=== PATIENT | female | born 1990 | race Caucasian/White ===

== ENCOUNTER 2023-12-06 19:27 | Emergency (ER) | payer OTHER, SELFPAY ==
[2023-12-06 19:28] VITALS: BP 117/79; BMI 24.0
--- NOTE | 2023-12-06 20:44 | ED.GENMED ---
History of Present Illness
<TOMAS Beckett - Last Filed: 12/07/23 07:16>
General
Chief Complaint: Headache
Source: patient
Exam Limitations: none
Time Seen by Provider: 12/06/23 20:34
Nursing documentation reviewed up to this point in time: agreed with
Travel History
Have you had any contact with someone who has COVID-19?: No
Do you have any symptoms of coronavirus? Fever > 100 degrees, chills, cough, shortness of breath, sore throat, loss of taste or smell, muscle aches, or headache?: No
History of Present Illness
History of Present Illness:
Patient is a 33-year-old female presents to the ER for evaluation. Patient reports on 6 days ago she woke up due to a left-sided headache. Throughout the day and headache got worse and she also noticed left-sided neck pain and left
shoulder blade pain. The symptoms have since continued however on Monday (2 days ago) she started with episodes where she describes things appearing that they are moving. She was watching TV and the TV look like it was moving. She was speaking to
somebody and they look like they were moving. Since then she has also had intermittent sensations that she feels like she is moving. She has no prior history of vertigo. She is no prior history of headaches. She denies any associated nausea
vomiting light sensitivity. Denies any recent fever chills trauma. Denies any heavy weightlifting. Denies any recent chiropractic manipulation.
Patient has taken generic Tylenol which has not relieved her symptoms. She saw her PCP today at 6:15 PM here to the ER. She reports her headache has worsened since 6 PM.
Review of Systems
<TOMAS Beckett - Last Filed: 12/07/23 07:16>
Review of Systems
Allergies reviewed?: Yes
All Other Systems: ROS reviewed and negative except as documented in HPI and ROS
Constitutional: Reports no symptoms; Denies fever, fatigue or chills
Respiratory: Reports no symptoms
Cardiac: Reports no symptoms
ABD/GI: Reports no symptoms; Denies nausea or vomiting
Musculoskeletal: Reports neck pain ( left-sided headache left shoulder blade)
Skin: Reports no symptoms; Denies rash
Neurological: Reports dizzy and headache
Endocrine: Reports no symptoms
Hematologic/Lymphatic: Reports no symptoms
Psychiatric: Reports no symptoms
Phy Exam
<TOMAS Beckett - Last Filed: 12/07/23 07:16>
General Physical Exam
General Presentation: no apparent distress
General age: appears stated age
General Skin: warm and dry
General Habitus: normal
General Mental: alert
General Hydration: appears well hydrated
Eye Exam
Eye Exam: PERRL and EOMI
Eye Exam General: PERRL: bilateral and EOM intact: bilateral
Pupil Exam: Bilateral: round and reactive
Neurological Exam
Neurological Exam: alert and oriented x3
[place] Coma Scale
Eye Opening: Spontaneous
Verbal Response: Oriented
Motor Response: Obeys Commands
GCS Total Score: 15
Cerebellar
Cerebellar Function: normal finger to nose
Musculoskeletal Exam
Musculoskeletal Exam: full ROM
Skin Exam
Skin Exam: normal color and warm/dry
Psychiatric Exam
Psychiatric Exam: normal mood/affect
<Dave Man DO - Last Filed: 12/06/23 23:00>
[place] Coma Scale
GCS Total Score: 15
Course
<TOMAS Beckett - Last Filed: 12/07/23 07:16>
Orders/Labs/Results
Orders:
Orders
12/06/23 20:42
CT Head & Neck Angio W/wo IV Urgent
Comment:
Reason For Exam: left sided headache/ vertigo no hx of headaches
12/06/23 20:43
IV Insert/Care/Rem.- Treatment PRN
0.9% Sodium Chloride 1000 ml [Nss] 1,000 ml IV BOLUS
Diphenhydramine [Benadryl] 25 mg IV NOW STA
Metoclopramide [Reglan] 10 mg IV NOW STA
12/06/23 21:05
Complete Blood Count/With Diff Urgent
12/06/23 21:27
Comprehensive Metabolic Panel Urgent
HCG, Serum Qualitative Screen Urgent
12/06/23 22:55
Ketorolac [Toradol] 15 mg IV NOW STA
Abnormal Lab Results
12/06/23 12/06/23
21:05 21:27
Absolute Monos (auto) 0.7 H 10^3/uL
(0.1-0.6)
Sodium 132 L mmol/L
(135-145)
Carbon Dioxide 21 L mmol/L
(22-30)
12/06/23 21:05
12/06/23 21:27
Vital Signs
Initial and Last Documented VS:
Initial Vital Signs
Temp Pulse Resp BP Pulse Ox
98.4 F 84 16 117/79 99
12/06/23 19:28 12/06/23 19:28 12/06/23 19:28 12/06/23 19:28 12/06/23 19:28
Last Documented Vital Signs
Temp Pulse Resp BP Pulse Ox
98.4 F 84 16 102/67 98
12/06/23 19:28 12/06/23 19:28 12/06/23 19:28 12/06/23 21:53 12/06/23 21:53
Pediatric Dental Assistant consulted with Physician
Pediatric Dental Assistant consulted with physician?: Yes
Name of Physician Consulted: Donovan
<Dave Man, - Last Filed: 12/06/23 23:00>
Orders/Labs/Results
Orders:
Orders
12/06/23 20:42
CT Head & Neck Angio W/wo IV Urgent
Comment:
Reason For Exam: left sided headache/ vertigo no hx of headaches
12/06/23 20:43
IV Insert/Care/Rem.- Treatment PRN
0.9% Sodium Chloride 1000 ml [Nss] 1,000 ml IV BOLUS
Diphenhydramine [Benadryl] 25 mg IV NOW STA
Metoclopramide [Reglan] 10 mg IV NOW STA
12/06/23 21:05
Complete Blood Count/With Diff Urgent
12/06/23 21:27
Comprehensive Metabolic Panel Urgent
HCG, Serum Qualitative Screen Urgent
12/06/23 22:55
Ketorolac [Toradol] 15 mg IV NOW STA
Abnormal Lab Results
12/06/23 12/06/23
21:05 21:27
Absolute Monos (auto) 0.7 H 10^3/uL
(0.1-0.6)
Sodium 132 L mmol/L
(135-145)
Carbon Dioxide 21 L mmol/L
(22-30)
12/06/23 21:05
12/06/23 21:27
Vital Signs
Initial and Last Documented VS:
Initial Vital Signs
Temp Pulse Resp BP Pulse Ox
98.4 F 84 16 117/79 99
12/06/23 19:28 12/06/23 19:28 12/06/23 19:28 12/06/23 19:28 12/06/23 19:28
Last Documented Vital Signs
Temp Pulse Resp BP Pulse Ox
98.4 F 84 16 102/67 98
12/06/23 19:28 12/06/23 19:28 12/06/23 19:28 12/06/23 21:53 12/06/23 21:53
<TOMAS Beckett - Last Filed: 12/07/23 07:16>
MDM/Problems Addressed
MDM/Problems Addressed:
2051: Case discussed with ED physician .
patient with no prior history of headaches and as documented started with left-sided headache 6 days ago associate with neck pain left shoulder plain and dizzy sensation/vertigo symptoms. She has no history of vertigo or migraine headaches. She
presents awake alert no acute distress with normal neurological exam. Based on symptoms will order CT head and CT head and neck angio. will give fluids and give reglan Benadryl. CAse signed out to DR Man
<TOMAS Beckett - Last Filed: 12/07/23 07:16>
*Critical Care Note
Total Time (30-74mins, 75-104mins- exclusive of procedures): Not Applicable
ED Attending Note
<TOMAS Beckett - Last Filed: 12/07/23 07:16>
-
Portions of this chart may have been created with voice recognition software.� Occasional wrong word or��sound alike� substitutions may have occurred due to the inherent limitations of voice recognition software.
<Dave Man DO - Last Filed: 12/06/23 23:00>
ED Attending Note
Patient seen and examined by attending physician: Yes
I performed the substantive portion of visit, reviewed & personally made and approve the management plan that is documented in note by myself or AMANDA.: Yes
I performed a history and physical exam of patient and discussed management with resident, I reviewed resident's note and agree with documented findings and plan of care.: Yes
ED Attending Note:
I evaluated the patient at bedside. The patient is well-appearing. Since she did have associated vertiginous symptoms associated with new unexplained headache, CTA imaging was obtained. I also reassessed patient at 11 PM. Overall the patient
states that she was able to and feel somewhat improved after Reglan/Benadryl. We also given Toradol. I have also given her the contact information for a local neurologist. She did just come from her primary care doctor's office earlier this
evening.
Discharge Plan
Departure
Patient Disposition: Home (Routine Discharge)
Date of Disposition: 12/06/23
Time of Disposition: 22:58
Patient with high blood pressure during this ER visit?: No
Discharge Problem:
Headache
Instructions: Headache, Adult (DC)
Referrals:
Silverio Cm, DO [Family Provider] -
Maria L Reed, DO [Active] - Follow up in 2-3 days
Activity Restrictions/Additional Instructions:
Please follow-up your primary care doctor. I recommend 3-4 [id number]-nac-vijakld ibuprofen (Motrin) every 8 hours with food for a few days. Return here if worse. A CAT scan of your brain was obtained which was unremarkable including CAT scan
angiography imaging that showed no sign of carotid dissection or other vascular abnormality. Basic blood work was normal. We gave Reglan with Benadryl initially and then Toradol before you left. Toradol is a medicine similar to Motrin. I have
also given the contact information for local neurologist.
Interventions
Interventions:
*Risk Screen - Suicide Last Done: 12/06/23 19:28
*General Assessment Last Done: 12/06/23 20:58
*Neglect/Abuse Screening Last Done: 12/06/23 19:28
ED- Fall Risk Assessment Last Done: 12/06/23 20:58
*ED COVID-19 Vaccine History Last Done: 12/06/23 19:28
*Nursing Disposition Last Done: 12/06/23 23:07
ED- Neurological Assessment Last Done: 12/06/23 20:58
Discharge Date and Time
Discharge Date/Time: 12/06/23 23:08
Print Language: INDONESIAN
[2023-12-06 20:57] VITALS: BP 103/72
[2023-12-06] MEDS: NSS 1000 IV (21:10)
[2023-12-06] MEDS: REGLAN 10 MG IV (21:11)
[2023-12-06 21:13] LABS: % Basophils 0.5 % (0-2); % Eosinophils 3.8 % (0-6); % Immature Granulocytes 0.1 % (0-0.5); % Monocytes 8.9 % (1.7-9.3); % Neutrophils 53.7 % (42.2-75.2); Absolute Eosinophils 0.3 10^3/uL (0-0.7); Absolute Lymphocytes 2.4 10^3/uL (1.2-3.4); Absolute Monocytes 0.7 10^3/uL (0.1-0.6); Absolute Neutrophils 3.9 10^3/uL (1.4-6.5); Hematocrit 37.1 % (37.0-47.0); Hemoglobin 13.1 g/dL (12.0-16.0); Mean Corp Hgb Conc. 35.3 g/dL (33.0-37.0); Mean Corpuscular Hgb 30.6 pg (27.0-31.0); Mean Corpuscular Volume 86.7 fL (81.0-99.0); Mean Platelet Volume 9.1 fL (7.4-10.4); Nucleated Red Blood Cells % 0 %; Platelet Count 319 10^3/uL (130-400); Red Blood Cell Count 4.28 10^6/uL (4.20-5.40); Red Cell Dist. Width 11.9 % (11.5-14.5); White Blood Cell Count 7.3 10^3/uL (4.8-10.8)
[2023-12-06] MEDS: BENADRYL 25 MG IV (21:13)
[2023-12-06 21:53] VITALS: BP 102/67
[2023-12-06 21:55] LABS: ALT (SGPT) 19 U/L (0-35); AST (SGOT) 22 U/L (14-36); Albumin 4.2 g/dl (3.5-5.0); Alkaline Phosphatase 39 U/L (38-126); Blood Urea Nitrogen 12 mg/dl (7-17); Calcium 9.1 mg/dl (8.4-10.2); Carbon Dioxide 21 mmol/L (22-30); Chloride 105 mmol/L (98-107); Estimated Creatinine Clearance > 125 ml/min; Glucose 83 mg/dl (70-99); HCG, Serum Qualitative Screen Negative; Potassium 3.7 mmol/L (3.5-5.1); Sodium 132 mmol/L (135-145); Total Bilirubin 0.2 mg/dl (0.2-1.3); eGFR > 60.00
[2023-12-06] MEDS: TORADOL 15 MG IV (22:59)
== END 2023-12-06 23:08 | disposition home or self-care (01) ==
LOC: EMR 19:27
PROVIDERS: Nurse Practitioner; EMERGENCY PHYSICIAN Emergency Medicine; FAMILY PHYSICIAN Family Medicine
DX: R51.9 Headache, unspecified (principal); M54.2 Cervicalgia
CPT/HCPCS: 99284; 96374; 96375; 96361; 70496; 70498; 80053; 84703; 85025; Q9967